=== PATIENT | female | born 1970 | race Caucasian/White ===

== ENCOUNTER 2025-07-12 12:49 | Inpatient (IN) | payer MEDICAID ==
[~2025-07-12] VITALS: Ht 152.4 cm; Wt 50.2 kg
[2025-07-12] MEDS ORDERED: REMEDY ESSENTIAL ZINC PASTE 113 GM TP PRN (13:15)
[2025-07-12] MEDS ORDERED: ZOLPIDEM 5 MG TABLET PO PRN (13:15)
[2025-07-12] MEDS ORDERED: ONDANSETRON 4 MG/2 ML VIAL IV PRN (13:15)
[2025-07-12] MEDS ORDERED: MAGNESIUM HYDROXIDE 30 ML LIQUID UDC PO PRN (13:15)
[2025-07-12 15:58] VITALS: BP 157/72; TEMP 98.1; O2SAT 99
[2025-07-12] MEDS: FLEET ENEMA 133 ML BOTTLE RC ONE (17:00)
[2025-07-12] MEDS ORDERED: DEXTROSE 50% 50 ML DISP.SYRIN IV PRN (17:00)
[2025-07-12 19:00] VITALS: BP 168/79; TEMP 98; O2SAT 95
[2025-07-12] MEDS: ENOXAPARIN SODIUM 40 MG/0.4 ML DISP.SYRIN SQ SCH (21:18)
[2025-07-12] MEDS: BLOOD SUGAR DIAGNOSTIC 1 EACH STRIP VI SCH (21:21)
[2025-07-12] MEDS: INSULIN REGULAR, HUMAN 300 UNITS/3 ML VIAL SQ PRN (21:23)
[2025-07-13] VITALS: BP 163/77; TEMP 98.1; O2SAT 95
[2025-07-13 04:00] VITALS: BP 167/76; TEMP 98.6; O2SAT 96
[2025-07-13] MEDS: PANTOPRAZOLE SODIUM 40 MG TABLET.DR PO SCH (06:33)
[2025-07-13 06:51] LABS: PLATELET COUNT (AUTO) 265 K/uL (179-408); RED BLOOD CELL COUNT(AUTO) 2.98 MIL/uL (3.63-4.92); RED CELL DISTRIBUTION WIDTH 14.7 % (12.3-17.7); WHITE BLOOD COUNT (AUTO) 6.3 K/uL (3.8-11.8)
[2025-07-13 07:08] LABS: CREATININE 0.5 mg/dL (0.6-1.3); SODIUM SERUM 133.0 mmol/L (136-145); UREA NITROGEN, BLOOD 42.0 mg/dL (7-18)
[2025-07-13 07:30] VITALS: BP 165/76; TEMP 98.6; O2SAT 99
[2025-07-13] MEDS: FUROSEMIDE 40 MG TABLET PO SCH (08:14)
[2025-07-13] MEDS: LACTULOSE 20 G/30 ML LIQUID UDC PO PRN (08:14)
[2025-07-13] MEDS: INSULIN REGULAR, HUMAN 1000 UNIT/10 ML VIAL SQ PRN (08:16)
[2025-07-13] MEDS: LOSARTAN POTASSIUM 50 MG TABLET PO SCH (09:21)
[2025-07-13] MEDS: POTASSIUM CHLORIDE 20 MEQ POWDER PACKET PO ONE (09:21)
[2025-07-13] MEDS ORDERED: OXYC-128 PO (11:25)
[2025-07-13] MEDS ORDERED: INSU3INS6 SQ (11:25)
[2025-07-13] MEDS ORDERED: POLY17PO4 PO (11:25)
[2025-07-13] MEDS ORDERED: SENN-291 PO (11:25)
[2025-07-13] MEDS ORDERED: FAMO-132 PO (11:25)
[2025-07-13] MEDS ORDERED: HYDR-894 PO (11:25)
[2025-07-13] MEDS ORDERED: BUME0.5T5 PO (11:25)
[2025-07-13] MEDS ORDERED: ERGO500040 PO (11:25)
[2025-07-13] MEDS ORDERED: CARV25TA2 PO (11:25)
[2025-07-13] MEDS ORDERED: INSU100I14 SQ (11:25)
[2025-07-13] MEDS ORDERED: LISI20TA30 PO (11:25)
[2025-07-13 11:26] LABS: ASPARTATE AMINOTRANSFERASE 12.0 U/L (15-37); TOTAL PROTEIN, SERUM 4.7 g/dL (6.4-8.2)
[2025-07-13 11:39] VITALS: BP 173/84; TEMP 98.8; O2SAT 96
[2025-07-13] MEDS: ERGOCALCIFEROL 50,000 UNIT CAPSULE PO SCH (12:42)
[2025-07-13 15:42] VITALS: BP 159/69; TEMP 98.6; O2SAT 97
[2025-07-13] MEDS: GLUCERNA SHAKE 237 ML CAN PO SCH (16:43)
[2025-07-13] MEDS: CARVEDILOL 25 MG TABLET PO SCH (16:49)
[2025-07-13] MEDS: MIRALAX 17 GM POWD.PACK PO SCH (16:49)
[2025-07-13] MEDS: SENNOSIDES/DOCUSATE SODIUM TABLET PO PRN (16:49)
[2025-07-13] MEDS: ACETAMINOPHEN 325 MG TABLET PO PRN (16:49)
[2025-07-13 19:25] VITALS: BP 155/75; TEMP 99.3; O2SAT 95
[2025-07-13] MEDS: INSULIN GLARGINE,HUM 300 UNITS/3 ML CARTRIDGE SQ SCH (21:14)
[2025-07-14] MEDS: BISACODYL 10 MG SUPP.RECT RC ONE (00:41)
[2025-07-14 05:11] VITALS: BP 173/85; TEMP 98.8; O2SAT 95
[2025-07-14 07:12] LABS: PLATELET COUNT (AUTO) 221 K/uL (179-408); RED BLOOD CELL COUNT(AUTO) 2.91 MIL/uL (3.63-4.92); RED CELL DISTRIBUTION WIDTH 14.5 % (12.3-17.7); WHITE BLOOD COUNT (AUTO) 8.4 K/uL (3.8-11.8)
[2025-07-14 07:28] LABS: ASPARTATE AMINOTRANSFERASE 18.0 U/L (15-37); CREATININE 0.7 mg/dL (0.6-1.3); SODIUM SERUM 132.0 mmol/L (136-145); TOTAL PROTEIN, SERUM 4.8 g/dL (6.4-8.2); UREA NITROGEN, BLOOD 37.0 mg/dL (7-18)
[2025-07-14 11:33] VITALS: BP 154/76; TEMP 98.2; O2SAT 99
[2025-07-14] MEDS: OXYCODONE/APAP 5-325 MG TABLET PO PRN (12:58)
[2025-07-14 16:00] VITALS: BP 156/74; TEMP 98.8; O2SAT 98
[2025-07-14 19:35] VITALS: BP 133/68; TEMP 98.5; O2SAT 96
[2025-07-14] MEDS: AMLODIPINE 5 MG TABLET PO SCH (20:45)
[2025-07-15 06:55] LABS: PLATELET COUNT (AUTO) 269 K/uL (179-408); RED BLOOD CELL COUNT(AUTO) 2.97 MIL/uL (3.63-4.92); RED CELL DISTRIBUTION WIDTH 14.4 % (12.3-17.7); WHITE BLOOD COUNT (AUTO) 6.6 K/uL (3.8-11.8)
[2025-07-15 07:08] LABS: CREATININE 0.6 mg/dL (0.6-1.3); SODIUM SERUM 129.0 mmol/L (136-145); UREA NITROGEN, BLOOD 38.0 mg/dL (7-18)
[2025-07-15 07:14] VITALS: BP 142/69; TEMP 99; O2SAT 93
[2025-07-15 08:12] LABS: HEPATITIS B CORE AB, IgM Negative (Negative); HEPATITIS B CORE AB, TOTAL Negative (Negative); HEPATITIS B SURFACE AB, QUAL Non Reactive (.); HEPATITIS B SURFACE AG Negative (Negative); HEPATITIS C VIRUS ANTIBODY Non Reactive (Non Reactive)
[2025-07-15 10:07] VITALS: BP 135/66; TEMP 99.4
[2025-07-15 12:00] VITALS: BP 118/49; TEMP 99; O2SAT 96
[2025-07-15] MEDS ORDERED: HYDR-894 PO (12:21)
[2025-07-15] MEDS ORDERED: AMLO-212 PO (12:21)
[2025-07-15] MEDS ORDERED: CARV25TA2 PO (12:21)
[2025-07-15] MEDS ORDERED: FURO40TA5 PO (12:21)
[2025-07-15] MEDS ORDERED: AMOX500C2 PO (12:21)
[2025-07-15] MEDS ORDERED: LOSA50TA3 PO (12:21)
[2025-07-15 13:36] VITALS: BP 119/56
[2025-07-15 16:14] VITALS: BP 136/66; TEMP 98.8; O2SAT 98
[2025-07-15 17:42] VITALS: BP 164/68
[2025-07-16 13:07] LABS: *HCV QUANT HCV Not Detected IU/mL (.)
== END 2025-07-15 18:10 | disposition home or self-care (01) | DRG 254 ==
LOC: MEDSURG3 12:49 → TELE3 14:15 → MEDSURG3 07-13 09:30
PROVIDERS: ADMIT Student in an Organized Health Care Education/Training Program; ATTEND Student in an Organized Health Care Education/Training Program
DX: K59.09 Other constipation (principal); E43 Unspecified severe protein-calorie malnutrition; E83.41 Hypermagnesemia; I11.0 Hypertensive heart disease with heart failure; E88.09 Other disorders of plasma-protein metabolism, not elsewhere classified; I16.0 Hypertensive urgency; E87.6 Hypokalemia; E11.9 Type 2 diabetes mellitus without complications; D64.9 Anemia, unspecified; E87.1 Hypo-osmolality and hyponatremia; I50.32 Chronic diastolic (congestive) heart failure; N39.0 Urinary tract infection, site not specified; Z74.01 Bed confinement status; Z79.899 Other long term (current) drug therapy; Z90.49 Acquired absence of other specified parts of digestive tract; R94.6 Abnormal results of thyroid function studies; Z87.440 Personal history of urinary (tract) infections
CPT/HCPCS: 36415; 71045; 83735; 84100; 84443; 85025; 86704; 86705; 86706; 86803; 87340; 87350; 87521; 93307; G0378; J0696; J1650; J1815; J2405